=== PATIENT | male | born 1965 | race Caucasian/White ===

== ENCOUNTER 2021-10-28 07:58 | Emergency (ER) | payer OTHER ==
[~2021-10-28] VITALS: Ht 190.5 cm; Wt 79.4 kg
[2021-10-28 08:11] VITALS: BP 162/90
--- NOTE | 2021-10-28 08:20 | NUR ---
SEEN BY LILLI BROWN. Patient discharged to home in stable condition. Written and verbal after care instructions given. Patient verbalizes understanding of instruction.
== END 2021-10-28 08:23 | disposition home or self-care (01) ==
LOC: ER 08:13
DX: A05.9 Bacterial foodborne intoxication, unspecified (principal)